=== PATIENT | female | born 1985 | race Caucasian/White ===

== ENCOUNTER 2020-05-08 15:24 | Emergency (ER) | payer BC ==
[2020-05-08] MEDS ORDERED: ROCEPHIN 2 Gm-D5w 50ML BAG** 2 G/50 ML IVPB IV ONE (16:05)
[2020-05-08] MEDS ORDERED: Sodium Chloride 0.9% 1000 ML 1,000 ML ONE (16:05)
[2020-05-08] MEDS ORDERED: MORPHINE SULFATE 4 MG INJ ONE (16:05)
[2020-05-08] MEDS ORDERED: Zofran 4 MG/2 ML VIAL ONE (16:05)
[2020-05-08] MEDS: ROCEPHIN 2 Gm-D5w 50ML BAG** 2 G/50 ML IVPB IV STA (16:14)
[2020-05-08] MEDS: Sodium Chloride 0.9% 1000 ML 1,000 ML IV STA (16:14)
[2020-05-08] MEDS: MORPHINE SULFATE 4 MG INJ IV ONE (16:15)
[2020-05-08] MEDS: Zofran 4 MG/2 ML VIAL IV ONE (16:16)
[2020-05-08] MEDS ORDERED: Phenergan 25 MG INJ ONE (16:19)
--- NOTE | 2020-05-08 16:26 | ERPHSYRPT ---
- History of Present Illness Time Seen by Provider: 05/08/20 15:38 Patient Subjective Stated Complaint: PT states "I went to the dr because I have had really bad back pain and Dr. Weiss is wanting to do a hysterectomy but when he checked my urine it was really bad he said." Triage Nursing Assessment: Pt presented alert and oriented X 3, skin pwd PT ambulates with an upright steady gait, able to speak in complete full sentences pt in no apparent respriatory distress. Physician History: 35 years old female with history of irregular cycles presented in the ER from [facility] for evaluation of low back pain and urinary symptoms. Patient reports going off and on for almost a month where she has a constant desire to urinate and every time she has a sense of incomplete void with pressure in the pelvis and moderate intensity dull aching to stabbing pain in the low back and left flank which is aggravated with urination. She has been taking [id number] medication with no significant relief. Denies any vaginal bleeding associated with it at this time. Patient was at [facility] office for possible hysterectomy but urinalysis showed UTI and is sent in here for further evaluation with ultrasound and lab work. Patient feels nauseated but no vomiting. No fever or chills reported. Timing/Duration: week(s), intermittent, worse Activites at Onset: none Quality: aching, throbbing Onset Location: unknown Pain Radiation: none Severity of Pain-Max: moderate Severity of Pain-Current: moderate Prior abdominal problems: none Sexual intercourse history: non-contributory Modifying Factors: Improves With: urinating Associated Symptoms: nausea, dysuria, urinary frequency, lower back pain, No abdominal pain, No fever, No chills, No vomiting, No loss of bladder control, No vaginal discharge Allergies/Adverse Reactions: levofloxacin [From Levaquin] Allergy (Intermediate, Verified 05/08/20 15:37) Rash Sulfa (Sulfonamide Antibiotics) Allergy (Intermediate, Verified 05/08/20 15:37) Rash ondansetron HCl [From Zofran (as hydrochloride)] Adverse Reaction (Severe, Verified 05/08/20 15:37) Difficulty Breathing Home Medications: No Reportable Medications [No Reported Medications] 05/08/20 [History] Hx Tetanus, Diphtheria Vaccination/Date Given: Yes Hx Influenza Vaccination/Date Given: No Hx Pneumococcal Vaccination/Date Given: No Travel Risk - International Travel Have you traveled outside of the country in past 3 weeks: No - Coronavirus Screening Are you exhibiting any of the following symptoms?: No Close contact with a COVID-19 positive Pt in past 14-21 Days: No - Review of Systems Constitutional: No Symptoms Eyes: No Symptoms Ears, Nose, & Throat: No Symptoms Respiratory: No Symptoms Cardiac: No Symptoms Abdominal/Gastrointestinal: No Symptoms Genitourinary Symptoms: Dysuria, Frequency, Flank Pain, No Hematuria, No He sitancy Musculoskeletal: Back Pain Skin: No Symptoms Neurological: No Symptoms Psychological: No Symptoms Endocrine: No Symptoms Hematologic/Lymphatic: No Symptoms Immunological/Allergic: No Symptoms - Past Medical History Pertinent Past Medical History: No Other Medical History: ovarian cyst - Past Surgical History Past Surgical History: Yes Female Surgical History: Section, Tubal Ligation, Other Other Surgical History: ablasion, - Social History Smoking Status: Current every day smoker How long have you smoked: years Exposure to second hand smoke: Yes Drug Use: none Patient Lives Alone: No - Female History Hx Last Menstrual Period: 04/24/2020 Hx Now: No - Nursing Vital Signs Nursing Vital Signs: Initial Vital Signs Temperature 98.5 F 05/08/20 15:30 Pulse Rate 130 H 05/08/20 15:30 Respiratory Rate 22 05/08/20 15:30 Blood Pressure 100/81 05/08/20 15:30 O2 Sat by Pulse Oximetry 96 05/08/20 15:30 Pain Scale Pain Intensity 0 - Physical Exam General Appearance: no apparent distress Eye Exam: PERRL/EOMI, eyes nml inspection Ears, Nose, Throat Exam: normal ENT inspection, TMs normal, pharynx normal Neck Exam: normal inspection, non-tender, supple, full range of motion Respiratory Exam: normal breath sounds, lungs clear, respiratory distress Cardiovascular Exam: regular rate/rhythm, normal heart sounds Gastrointestinal/Abdomen Exam: soft, normal bowel sounds, No tenderness Back Exam: normal inspection, normal range of motion, No CVA tenderness Extremity Exam: normal inspection, normal range of motion Neurologic Exam: alert, oriented x 3, cooperative Skin Exam: normal color, warm, dry SpO2 Interpretation: normal SpO2: 96 O2 Delivery: Room Air Ordered Tests: Active Orders 24 hr Category Date Time Status IV Insertion STAT Care 05/08/20 16:09 Active KIDNEY [US] Stat Exams 05/08/20 15:47 Completed PELVIS TRANS VAGINAL [US] Stat Exams 05/08/20 15:47 Completed CBC W DIFF Stat Lab 05/08/20 15:43 Completed CMP Stat Lab 05/08/20 15:50 Completed TSH [TSH, 3RD Generation] Stat Lab 05/08/20 15:50 Completed UA W/RFX UR CULTURE Stat Lab 05/08/20 16:02 Completed Medication Summary Discontinued Medications Generic Name Dose Route Start Last Admin Trade Name Tera PRN Reason Stop Dose Admin Ceftriaxone Sodium/Dextrose 2 g in 50 mls @ 100 mls/hr 05/08/20 15:47 05/08/20 16:45 Rocephin 2 Gm-D5w 50ml Bag IV 05/08/20 16:16 Infused STAT STA Infusion Sodium Chloride 1,000 mls @ 999 mls/hr 05/08/20 15:48 05/08/20 17:33 Sodium Chloride 0.9% 1000 Ml IV 05/08/20 16:48 Infused .Q1H1M STA Infusion Sodium Chloride Confirm 05/08/20 16:05 Sodium Chloride 0.9% 1000 Ml Administered 05/08/20 16:06 Dose 1,000 mls @ ud .ROUTE .STK-MED ONE Ceftriaxone Sodium/Dextrose Confirm 05/08/20 16:05 Rocephin 2 Gm-D5w 50ml Bag Administered 05/08/20 16:06 Dose 2 g in 50 mls @ ud IV .STK-MED ONE Ketorolac Tromethamine 30 mg 05/08/20 17:16 05/08/20 17:17 Toradol 30 Mg Injection IV 05/08/20 17:17 30 mg STAT ONE Administration Ketorolac Tromethamine Confirm 05/08/20 17:16 Toradol 30 Mg Injection Administered 05/08/20 17:17 Dose 30 mg .ROUTE .STK-MED ONE Morphine Sulfate 4 mg 05/08/20 15:48 05/08/20 16:15 Morphine Sulfate 4 Mg Inj IV 05/08/20 15:49 4 mg STAT ONE Administration Morphine Sulfate Confirm 05/08/20 16:05 Morphine Sulfate 4 Mg Inj Administered 05/08/20 16:06 Dose 4 mg .ROUTE .STK-MED ONE Ondansetron HCl 4 mg 05/08/20 15:48 05/08/20 16:16 Zofran 4 Mg/2 Ml Vial IV 05/08/20 15:49 Not Given STAT ONE Ondansetron HCl Confirm 05/08/20 16:05 Zofran 4 Mg/2 Ml Vial Administered 05/08/20 16:06 Dose 4 mg .ROUTE .STK-MED ONE Promethazine HCl 25 mg 05/08/20 16:17 05/08/20 16:28 Phenergan 25 Mg Inj IM 05/08/20 16:18 25 mg STAT ONE Administration Promethazine HCl Confirm 05/08/20 16:19 Phenergan 25 Mg Inj Administered 05/08/20 16:20 Dose 25 mg .ROUTE .STK-MED ONE Lab/Rad Data: Laboratory Result Diagrams 05/08/20 15:43 05/08/20 15:50 Laboratory Results 05/08/20 05/08/20 05/08/20 Range/Units Unknown 16:02 15:50 WBC (4.0-10.5) K/mm3 RBC (4.1-5.4) M/mm3 Hgb (12.0-16.0) gm/dl Hct (35-47) % MCV (78-100) fl MCH (26-32) pg MCHC (32-36) g/dl RDW (11.5-14.0) % Plt Count (150-450) K/mm3 MPV (7.5-11.0) fl Gran % (36.0-66.0) % Eos # (Auto) (0-0.5) Absolute Lymphs (auto) (1.0-4.6) Absolute Monos (auto) (0.0-1.3) Lymphocytes % (24.0-44.0) % Monocytes % (0.0-12.0) % Eosinophils % (0.00-5.0) % Basophils % (0.0-0.4) % Absolute Granulocytes (1.4-6.9) Basophils # (0-0.4) Sodium 136 L (137-145) mmol/L Potassium 4.0 (3.5-5.1) mmol/L Chloride 105 (98-107) mmol/L Carbon Dioxide 23 (22-30) mmol/L Anion Gap 12.1 (5-15) MEQ/L BUN 15 (7-17) mg/dL Creatinine 0.86 (0.52-1.04) mg/dL Estimated GFR > 60.0 ML/MIN Glucose 105 (74-106) mg/dL Calcium 9.4 (8.4-10.2) mg/dL Total Bilirubin 0.50 (0.2-1.3) mg/dL AST 27 (14-36) U/L ALT 40 H (0-35) U/L Alkaline Phosphatase 63 (38-126) U/L Serum Total Protein 7.4 (6.3-8.2) g/dL Albumin 4.4 (3.5-5.0) g/dL 25-OH Vitamin D Total 70.9 (30-100) ng/mL TSH 3rd Generation 1.660 (0.47-4.68) mIU/L Urine Color YELLOW (YELLOW) Urine Appearance TURBID (CLEAR) Urine pH 5.0 (5-6) Ur Specific [place] 1.031 (1.005-1.025) Urine Protein 100 (Negative) Urine Ketones NEGATIVE (NEGATIVE) Urine Blood MODERATE (0-5) Caden/ul Urine Nitrite NEGATIVE (NEGATIVE) Urine Bilirubin NEGATIVE (NEGATIVE) Urine Urobilinogen 2 (0-1) mg/dL Ur Leukocyte Esterase SMALL (NEGATIVE) Urine WBC (Auto) NONE (0-5) /HPF Urine RBC (Auto) NONE (0-2) /HPF U Epithel Cells (Auto) RARE (FEW) /HPF Urine Bacteria (Auto) NONE SEEN (NEGATIVE) /HPF Amorphous Crystals MODERATE (NEGATIVE) /HPF Urine Mucus (Auto) SLIGHT (NEGATIVE) /HPF Urine Culture Reflexed NO (NO) Urine Glucose NEGATIVE (NEGATIVE) mg/dL 05/08/20 Range/Units 15:43 WBC 6.1 (4.0-10.5) K/mm3 RBC 4.31 (4.1-5.4) M/mm3 Hgb 13.8 (12.0-16.0) gm/dl Hct 40.6 (35-47) % MCV 94.2 (78-100) fl MCH 32.0 (26-32) pg MCHC 34.0 (32-36) g/dl RDW 12.7 (11.5-14.0) % Plt Count 209 (150-450) K/mm3 MPV 11.1 H (7.5-11.0) fl Gran % 51.7 (36.0-66.0) % Eos # (Auto) 0.33 (0-0.5) Absolute Lymphs (auto) 2.08 (1.0-4.6) Absolute Monos (auto) 0.47 (0.0-1.3) Lymphocytes % 34.2 (24.0-44.0) % Monocytes % 7.7 (0.0-12.0) % Eosinophils % 5.4 H (0.00-5.0) % Basophils % 1.0 (0.0-0.4) % Absolute Granulocytes 3.15 (1.4-6.9) Basophils # 0.06 (0-0.4) Sodium (137-145) mmol/L Potassium (3.5-5.1) mmol/L Chloride (98-107) mmol/L Carbon Dioxide (22-30) mmol/L Anion Gap (5-15) MEQ/L BUN (7-17) mg/dL Creatinine (0.52-1.04) mg/dL Estimated GFR ML/MIN Glucose (74-106) mg/dL Calcium (8.4-10.2) mg/dL Total Bilirubin (0.2-1.3) mg/dL AST (14-36) U/L ALT (0-35) U/L Alkaline Phosphatase (38-126) U/L Serum Total Protein (6.3-8.2) g/dL Albumin (3.5-5.0) g/dL 25-OH Vitamin D Total (30-100) ng/mL TSH 3rd Generation (0.47-4.68) mIU/L Urine Color (YELLOW) Urine Appearance (CLEAR) Urine pH (5-6) Ur Specific [place] (1.005-1.025) Urine Protein (Negative) Urine Ketones (NEGATIVE) Urine Blood (0-5) Caden/ul Urine Nitrite (NEGATIVE) Urine Bilirubin (NEGATIVE) Urine Urobilinogen (0-1) mg/dL Ur Leukocyte Esterase (NEGATIVE) Urine WBC (Auto) (0-5) /HPF Urine RBC (Auto) (0-2) /HPF U Epithel Cells (Auto) (FEW) /HPF Urine Bacteria (Auto) (NEGATIVE) /HPF Amorphous Crystals (NEGATIVE) /HPF Urine Mucus (Auto) (NEGATIVE) /HPF Urine Culture Reflexed (NO) Urine Glucose (NEGATIVE) mg/dL - Progress Progress: improved, re-examined Air Movement: good Progress Note: 05/08/20 19:44 35 years old is evaluated for UTI symptoms and low back pain with some flank pain. She is given IV fluid and pain medication along with 2 g of Rocephin as per DIRECTOR OF PHILANTHROPY recommendations. I have obtained ultrasound pelvis and renal per DIRECTOR OF PHILANTHROPY recommendation which did not show any acute findings. She has a normal white count. Grossly unremarkable chemistries. Patient symptoms signs are suggestive of UTI, patient has been given prescription of Keflex by Dr. Weiss. I have discussed results, patient condition with Dr. Weiss and recommended outpatient follow-up as scheduled. Patient has no peritoneal signs on repeated evaluation. Not in any distress or toxic appearance. Stable for discharge. Blood Culture(s) Obtained: No Antibiotics given: Yes Counseled pt/family regarding: lab results, diagnosis, need for follow-up, rad results - Departure Departure Disposition: Home Clinical Impression: Acute cystitis Qualifiers: Hematuria presence: with hematuria Qualified Code(s): N30.01 - Acute cystitis with hematuria Condition: Stable Critical Care Time: No Referrals: JEANIE JACKMAN [Primary Care Provider] - Follow Up with PCP/3 days SHER WEISS DO [ACTIVE STAFF] - (As scheduled) Instructions: Urinary Tract Infection, Adult (DC) Additional Instructions: Drink plenty of fluids. Take Tylenol/ibuprofen as needed. Continue with Keflex recommended by your DIRECTOR OF PHILANTHROPY. Follow-up with Dr. Weiss as recommended. Return to ER for any worsening.
[2020-05-08] MEDS: Phenergan 25 MG INJ IM ONE (16:28)
[2020-05-08 16:39] LABS: Absolute Neutrophil Ct (ANC) 3.15 (1.4-6.9); Basophil (Absolute #) 0.06 (0-0.4); Eosinophil % 5.4 % (0.00-5.0); Eosinophil (Absolute #) 0.33 (0-0.5); Hematocrit 40.6 % (35-47); Hemoglobin 13.8 gm/dl (12.0-16.0); Lymphocyte (Absolute #) 2.08 (1.0-4.6); Lymphocytes % 34.2 % (24.0-44.0); Mean Cell Volume 94.2 fl (78-100); Mean Platelet Volume 11.1 fl (7.5-11.0); Monocyte (Absolute #) 0.47 (0.0-1.3); Monocytes % 7.7 % (0.0-12.0); Neutrophil % 51.7 % (36.0-66.0); Platelet Count 209 K/mm3 (150-450); Red Blood Count 4.31 M/mm3 (4.1-5.4); Red Cell Distribution Width 12.7 % (11.5-14.0); White Blood Count 6.1 K/mm3 (4.0-10.5)
[2020-05-08 16:43] LABS: Amourphous Crystal MODERATE /HPF (NEGATIVE); Appearance TURBID (CLEAR); Bilirubin NEGATIVE (NEGATIVE); Blood MODERATE Ery/ul (0-5); Epithelial Cells RARE /HPF (FEW); Glucose NEGATIVE (NEGATIVE); Ketones NEGATIVE (NEGATIVE); Leukocyte Esterase SMALL (NEGATIVE); Mucus SLIGHT /HPF (NEGATIVE); Nitrite NEGATIVE (NEGATIVE); Protein,Urine Dip 100 (Negative); Specific Gravity 1.031 (1.005-1.025); Urobilinogen 2 mg/dL (0-1)
[2020-05-08 16:45] LABS: Bacteria NONE SEEN /HPF (NEGATIVE)
[2020-05-08] MEDS ORDERED: TORAdol 30 mg Injection ONE (17:16)
[2020-05-08] MEDS: TORAdol 30 mg Injection IV ONE (17:17)
[2020-05-08 17:34] LABS: ALBUMIN 4.4 g/dL (3.5-5.0); ALKALINE PHOSPHATASE 63 U/L (38-126); ANION GAP 12.1 MEQ/L (5-15); BLOOD UREA NITROGEN 15 mg/dL (7-17); CHLORIDE 105 mmol/L (98-107); Calcium 9.4 mg/dL (8.4-10.2); Carbon Dioxide 23 mmol/L (22-30); Creatinine 1 0.86 mg/dL (0.52-1.04); Glucose 105 mg/dL (74-106); SGOT/AST 27 U/L (14-36); SGPT/ALT 40 U/L (0-35); SODIUM 136 mmol/L (137-145); Total Protein 7.4 g/dL (6.3-8.2)
--- NOTE | 2020-05-08 19:22 | XRAY ---
Exam: Transvaginal pelvic ultrasound from 05/08/2020. Comparison: CT of the abdomen and pelvis with IV contrast from 02/24/2016. Indication: 35-year-old female with low back pain. Findings: Transvaginal images of the pelvis reveal a retroflexed uterus measuring 6.5 cm in length, 4.0 cm in AP depth, and 4.35 cm in width. The uterine myometrial acoustical architecture appears homogeneous without mass. AP dimension of the endometrium on the midline sagittal image measures 2.7 mm. There is a 4.5 mm x 3.5 mm nabothian cyst seen within the cervical region. I see no free intraperitoneal fluid within the cul-de-sac. However, I cannot exclude a small amount of free fluid abutting the uterine fundus. This is nonspecific. The right ovary measures reveals several follicles within it, the largest follicle measuring 1.5 cm in greatest diameter. The right ovary measures 3.7 cm x 1.8 cm x 2.0 cm. Normal color blood flow and Doppler signal are seen within the right ovary. The left ovary measures 2.7 cm x 1.1 cm x 1.0 cm. Normal color blood flow and Doppler signal are seen within the left ovary. Impression: 1. Normal-sized retroflexed uterus remarkable only for a nabothian cyst. 2. There is a suggestion of a small amount of free intraperitoneal fluid adjacent to the uterine fundus. This is nonspecific. 3. Several follicles are seen within the right ovary, the largest measuring 1.5 cm in greatest diameter. Otherwise, both ovaries appear unremarkable.
--- NOTE | 2020-05-08 19:39 | XRAY ---
Exam: Renal ultrasound from 05/08/2020. Comparison: CT of the abdomen and pelvis with IV contrast from 02/24/2016. Indication: 35-year-old female with abdominal pain/flank pain. Findings: The right kidney measures 9.7 cm in length, 3.8 cm in AP depth, and 4.1 cm in width. Normal color blood flow is seen within the right kidney. There is no solid mass, significant cyst, or dominant stone seen. There is no evidence of hydronephrosis. Renal cortex thickness and echogenicity appear unremarkable. The left kidney measures 10.4 cm in length, 4.3 cm in AP depth, and 3.5 cm in width. Color blood flow images within the left kidney appear unremarkable. I see no solid mass, significant cyst, hydronephrosis, or dominant renal stone. Renal cortex thickness and echogenicity appear unremarkable. The urinary bladder is mildly distended and measures 5.60 cm in width, 3.7 cm in craniocaudal length, and 3.7 cm in AP dimension, yielding a urinary bladder volume of 35.41 ML's. Neither distal ureteral jet was seen with color flow imaging. Impression: 1. No significant abnormality detected. Specifically, I see no evidence of dominant renal stone or hydronephrosis.
[2020-05-08 19:58] VITALS: BP 110/66; PULSE 87; O2SAT 97
[2020-05-11 02:43] LABS: FOLLICLE STIMULATING HORMONE 4.5 mIU/mL; Lutenizing Hormone 7.8 mIU/mL
== END 2020-05-08 20:14 | disposition home or self-care (01) ==
LOC: ED 15:24
DX: N30.01 Acute cystitis with hematuria (principal)
CPT/HCPCS: 36000; 36415; 76770; 76830; 80053; 81001; 82306; 83001; 83002; 83525; 84403; 84443; 85025; 87480; 87510; 87660; 96360; 96365; 96372; 96374; 96375; 99284; J0696; J1885; J2270; J2405; J2550

== ENCOUNTER 2022-03-22 19:39 | Emergency (ER) | payer BC ==
[2022-03-22] MEDS ORDERED: DUONEB 0.5-3 MG/3 ml Neb IH ONE ×2 (20:36→20:43)
--- NOTE | 2022-03-22 20:43 | ERPHSYRPT ---
- History of Present Illness Source: patient Exam Limitations: no limitations Patient Subjective Stated Complaint: C/O cough for past week. States she thought it was getting better but now it's worse. Doesn't know if she has had a fever or not. Reports coughing up yellow sputum. Denies SOB or pain. States, "I can feel this moving into my chest." Triage Nursing Assessment: Patient ambulated back to ED without difficulties. No SOB. She is alert and oriented and answering questions appropriately. Frequent cough noted during assessment; non-productive at this time. Some wheezing noted in bilateral upper lobes. Physician History: 36 yo wf w cough x 1 week. Pt denies coryza/ST/fever/N/V/D. She smokes <1ppd. Timing/Duration: other (1wk) Cough Quality/Degree: dry cough Possible Cause: no prior episodes Associated Symptoms: cough, wheezing, No fever, No chills, No chest pain/soreness, No dizziness, No earache, No facial pain, No headache, No lightheadedness, No muscle aches, No nasal congestion, No nasal drainage, No shortness of breath, No sinus infection, No sore throat Allergies/Adverse Reactions: levofloxacin [From Levaquin] Allergy (Intermediate, Verified 03/22/22 19:58) Rash Sulfa (Sulfonamide Antibiotics) Allergy (Intermediate, Verified 03/22/22 19:58) Rash ondansetron HCl [From Zofran (as hydrochloride)] Adverse Reaction (Severe, Verified 03/22/22 19:58) Difficulty Breathing Hx Tetanus, Diphtheria Vaccination/Date Given: Yes Hx Influenza Vaccination/Date Given: No Hx Pneumococcal Vaccination/Date Given: No Immunizations Up to Date: Yes Travel Risk - International Travel Have you traveled outside of the country in past 3 weeks: No - Coronavirus Screening Are you exhibiting any of the following symptoms?: Yes Symptoms: Cough: New Onset, Headaches/Body Aches/Fatigue Close contact with a COVID-19 positive Pt in past 14-21 Days: No - Vaccine Status Have you recieved a Covid-19 vaccination: No - Review of Systems Constitutional: No Symptoms Eyes: No Symptoms Ears, Nose, & Throat: No Symptoms Respiratory: No Symptoms, Cough Cardiac: No Symptoms Abdominal/Gastrointestinal: No Symptoms Genitourinary Symptoms: No Symptoms Musculoskeletal: No Symptoms Skin: No Symptoms Neurological: No Symptoms Psychological: No Symptoms Endocrine: No Symptoms Hematologic/Lymphatic: No Symptoms Immunological/Allergic: No Symptoms - Past Medical History Pertinent Past Medical History: Yes Neurological History: No Pertinent History ENT History: No Pertinent History Cardiac History: Other Respiratory History: Asthma, Other Endocrine Medical History: No Pertinent History Musculoskeletal History: No Pertinent History GI Medical History: No Pertinent History History: No Pertinent History Psycho-Social History: No Pertinent History Female Reproductive Disorders: No Pertinent History Other Medical History: ovarian cyst, meningitis, pericarditis, tachycardia, low B/P, lacerated kidney and liver, rupture bladder, punctured lung (right had a chest tube) - Past Surgical History Past Surgical History: Yes Neuro Surgical History: No Pertinent History Cardiac: No Pertinent History Respiratory: No Pertinent History Gastrointestinal: No Pertinent History Genitourinary: No Pertinent History Musculoskeletal: No Pertinent History Female Surgical History: Section, Tubal Ligation, Other Other Surgical History: ablasion, - Social History Smoking Status: Current every day smoker How long have you smoked: 2 years Exposure to second hand smoke: No Drug Use: none Patient Lives Alone: No Significant Family History: no pertinent family hx - Female History Hx Last Menstrual Period: Last week Hx Now: No - Nursing Vital Signs Nursing Vital Signs: Initial Vital Signs Temperature 98 F 03/22/22 19:59 Pulse Rate 103 H 03/22/22 19:59 Respiratory Rate 20 03/22/22 19:59 Blood Pressure 140/79 03/22/22 19:59 O2 Sat by Pulse Oximetry 98 03/22/22 19:59 Pain Scale Pain Intensity 0 Mildly tachy/Mildly hypertensive - Physical Exam General Appearance: no apparent distress Eye Exam: PERRL/EOMI, eyes nml inspection Ears, Nose, Throat Exam: normal ENT inspection, TMs normal, pharynx normal, moist mucous membranes Neck Exam: normal inspection, non-tender, supple, full range of motion, No meningismus, No mass, No Brudzinski, No Kernig's Respiratory Exam: airway intact, wheezing (Scattered wheezes B) Cardiovascular Exam: tachycardia, capillary refill <2 sec, No murmur Gastrointestinal/Abdomen Exam: soft, normal bowel sounds, No tenderness Back Exam: normal inspection, normal range of motion, CVA tenderness Extremity Exam: normal inspection, normal range of motion Neurologic Exam: alert, oriented x 3, cooperative, outreach consultant II-XII nml as tested, normal mood/affect, nml station & gait, sensation nml, No motor deficits, No sensory deficit Skin Exam: normal color, warm, dry Lymphatic Exam: No adenopathy SpO2 Interpretation: airway management int. SpO2: 95 O2 Delivery: Room Air - Course Nursing assessment & vital signs reviewed: Yes - Radiology Exams Chest X-ray Interpretation: Interpreted by me (CXR/NAD) Ordered Tests: Active Orders 24 hr Category Date Time Status CHEST 1 VIEW (PORTABLE) Stat Exams 03/22/22 20:11 Taken CULTURE,URINE Stat Lab 03/22/22 20:39 Received UA W/RFX CULTURE Stat Lab 03/22/22 20:39 Completed Respiratory Therapy Assessment DAILY RT 03/22/22 21:16 Completed Medication Summary Discontinued Medications Generic Name Dose Route Start Last Admin Trade Name Frankyq PRN Reason Stop Dose Admin Hydrocodone Bitart/Acetaminophen 1 tablet 03/22/22 21:16 03/22/22 21:20 Hydrocodone/Acetamin 10-325 Mg Tablet PO 03/22/22 21:17 1 tablet ONCE ONE Administration Albuterol/Ipratropium 3 ml 03/22/22 20:36 03/22/22 20:45 Ipratropium/Albuterol Sulfate 3 Ml Ampul.Neb IH 03/22/22 20:37 3 ml STAT ONE Administration Albuterol/Ipratropium Confirm 03/22/22 20:43 Ipratropium/Albuterol Sulfate 3 Ml Ampul.Neb Administered 03/22/22 20:44 Dose 3 ml IH .STK-MED ONE Prednisone 60 mg 03/22/22 21:03 03/22/22 21:14 Prednisone 20 Mg Tablet PO 03/22/22 21:04 60 mg STAT ONE Administration Prednisone Confirm 03/22/22 21:12 Prednisone 20 Mg Tablet Administered 03/22/22 21:13 Dose 60 mg .ROUTE .STK-MED ONE Lab/Rad Data: Laboratory Results 03/22/22 03/22/22 Range/Units 20:39 19:00 Urinalys Dipstick Clnc MAIN LAB Urine Color YELLOW (YELLOW) Urine Appearance CLEAR (CLEAR) Urine pH 5.5 (5-6) Ur Specific [place] >=1.030 (1.005-1.025) POC Urine Protein Conf 100 (Negative) Urine Ketones NEGATIVE (NEGATIVE) Urine Nitrite NEGATIVE (NEGATIVE) Urine Bilirubin NEGATIVE (NEGATIVE) Urine Urobilinogen 0.2 (0-1) mg/dL Urine Leukocytes NEGATIVE (NEGATIVE) Urine WBC (Auto) 0-2 (0-5) /HPF Urine RBC (Auto) 3-5 (0-2) /HPF U Epithel Cells (Auto) RARE (FEW) /HPF Urine Bacteria (Auto) MANY (NEGATIVE) /HPF Urine RBC MODERATE (0-5) Caden/ul Urine Mucus (Auto) SLIGHT (NEGATIVE) /HPF Ur Culture Indicated? YES Urine Glucose NEGATIVE (NEGATIVE) mg/dL Influenza Type A Ag NEGATIVE (NEGATIVE) Influenza Type B Ag NEGATIVE (NEGATIVE) RSV (PCR) NEGATIVE (Negative) SARS-CoV-2 (PCR) NEGATIVE (NEGATIVE) - Progress Progress Note: 03/22/22 21:04 Albuterol neb x1 60mg po Prednisone Counseled pt/family regarding: diagnosis, need for follow-up, rad results - Departure Departure Disposition: Home Clinical Impression: Asthmatic bronchitis Condition: Stable Critical Care Time: No Referrals: DOCTOR,NO FAMILY [Primary Care Provider] - Follow up/PCP as directed Instructions: Acute Bronchitis, Adult (DC), Cough, Adult (DC) Additional Instructions: Quit smoking Doxycycline twice a day for 1 week Prednisone twice a day for 5 days Proventil inhaler 2puffs every 4 hours as needed Flovent 2 puffs twice a day If you get short of breath, use the Proventil inhaler and not Flovent Follow up with your family MD in 1-2 days Return to ER for increasing shortness of breath or temperature greater than 100.5 Prescriptions: Prednisone 10 mg [Deltasone 10 mg] 10 mg PO BID 5 Days #10 tablet Doxycycline Monohydrate 100 mg PO BID 7 Days #14 Fluticasone Propionate [Flovent Hfa] 2 puffs IH BID #1 inh Albuterol Sulfate [Proventil Hfa] 2 puffs IH Q4-6HPRN PRN #1 inhaler PRN Reason: Shortness Of Breath/Wheezing
[2022-03-22 20:57] LABS: INFLUENZA A NEGATIVE (NEGATIVE); INFLUENZA B NEGATIVE (NEGATIVE); RESPIRATORY SYNCTIAL VIRUS NEGATIVE (Negative); SARS-CoV-2 Xpert Express NEGATIVE (NEGATIVE)
[2022-03-22] MEDS ORDERED: DELTASONE 20 MG PO ONE (21:03)
[2022-03-22 21:06] VITALS: BP 108/65; PULSE 103
[2022-03-22 21:08] LABS: Appearance CLEAR (CLEAR); Bilirubin NEGATIVE (NEGATIVE); Glucose NEGATIVE (NEGATIVE); Ketones NEGATIVE (NEGATIVE); Ph 5.5 (5-6); RBC MODERATE Ery/ul (0-5); Specific Gravity >=1.030 (1.005-1.025)
[2022-03-22 21:09] LABS: Dipstick done @ ? MAIN LAB; Nitrite NEGATIVE (NEGATIVE); Protein,Urine Dip 100 (Negative); Urobilinogen 0.2 mg/dL (0-1)
[2022-03-22 21:10] VITALS: O2SAT 95
[2022-03-22] MEDS ORDERED: DELTASONE 20 MG ONE (21:12)
[2022-03-22 21:14] LABS: Epithelial Cells RARE /HPF (FEW); Mucus SLIGHT /HPF (NEGATIVE); WBC 0-2 /HPF (0-5)
[2022-03-22] MEDS ORDERED: HYDROCODONE-ACETAMIN 10-325 MG PO ONE (21:16)
[2022-03-22 21:17] LABS: Bacteria MANY /HPF (NEGATIVE); Urine Cultured Indicated? YES
--- NOTE | 2022-03-23 08:53 | XRAY ---
Indication: Cough. Comparison: None Portable chest demonstrates normal heart, lungs, and bony thorax.
== END 2022-03-22 21:35 | disposition home or self-care (01) ==
LOC: ED 19:39
DX: J45.909 Unspecified asthma, uncomplicated (principal); R05.1 Acute cough; Z72.0 Tobacco use; Z79.52 Long term (current) use of systemic steroids; Z28.310 Unvaccinated for COVID-19
CPT/HCPCS: 0241U; 71045; 81015; 87086; 94640; 99284; A9270-GY

== ENCOUNTER 2022-06-13 01:16 | Emergency (ER) | payer BC ==
--- NOTE | 2022-06-13 01:25 | ERPHSYRPT ---
- History of Present Illness Time Seen by Provider: 06/13/22 01:24 Source: patient Exam Limitations: no limitations Physician History: This is a 37-year-old white female who had relatively abrupt onset of right upper molar pain that radiated into her right ear and right jaw. She did not suffer any kind of trauma. She did take a 5/325 [place] approximately an hour prior to arrival. It was approximately 2 years old. She also took an Augmentin antibiotic approximate hour prior to arrival and it also was approximately 2 years old. Severity: moderate ENT Location: dental Prearrival Treatment: prescription meds Associated Symptoms: ear pain (R), tooth pain (Right upper molar pain), other (Right jaw pain) Allergies/Adverse Reactions: levofloxacin [From Levaquin] Allergy (Intermediate, Verified 06/13/22 01:28) Rash Sulfa (Sulfonamide Antibiotics) Allergy (Intermediate, Verified 06/13/22 01:28) Rash ondansetron HCl [From Zofran (as hydrochloride)] Adverse Reaction (Severe, Verified 06/13/22 01:28) Difficulty Breathing Hx Tetanus, Diphtheria Vaccination/Date Given: Yes Hx Influenza Vaccination/Date Given: No Hx Pneumococcal Vaccination/Date Given: No Travel Risk - International Travel Have you traveled outside of the country in past 3 weeks: No - Coronavirus Screening Are you exhibiting any of the following symptoms?: No Close contact with a COVID-19 positive Pt in past 14-21 Days: No - Vaccine Status Have you recieved a Covid-19 vaccination: No - Review of Systems Constitutional: No Symptoms Eyes: No Symptoms Ears, Nose, & Throat: Ear Pain (Right), Other (Right upper molar pain, right g ingival pain upper region, right earache) Respiratory: No Symptoms Cardiac: No Symptoms Abdominal/Gastrointestinal: No Symptoms Genitourinary Symptoms: No Symptoms Musculoskeletal: No Symptoms Skin: No Symptoms Neurological: No Symptoms Psychological: No Symptoms Endocrine: No Symptoms Hematologic/Lymphatic: No Symptoms Immunological/Allergic: No Symptoms All Other Systems: Reviewed and Negative - Past Medical History Pertinent Past Medical History: Yes Neurological History: No Pertinent History ENT History: No Pertinent History Cardiac History: Other Respiratory History: Asthma, Other Endocrine Medical History: No Pertinent History Musculoskeletal History: No Pertinent History GI Medical History: No Pertinent History History: No Pertinent History Psycho-Social History: No Pertinent History Female Reproductive Disorders: No Pertinent History Other Medical History: ovarian cyst, meningitis, pericarditis, tachycardia, low B/P, lacerated kidney and liver, rupture bladder, punctured lung (right had a chest tube) - Past Surgical History Past Surgical History: Yes Neuro Surgical History: No Pertinent History Cardiac: No Pertinent History Respiratory: No Pertinent History Gastrointestinal: No Pertinent History Genitourinary: No Pertinent History Musculoskeletal: No Pertinent History Female Surgical History: Section, Tubal Ligation, Other Other Surgical History: ablasion, - Social History Smoking Status: Current every day smoker How long have you smoked: 2 years Exposure to second hand smoke: No Drug Use: none Patient Lives Alone: No Significant Family History: no pertinent family hx - Nursing Vital Signs Nursing Vital Signs: Initial Vital Signs Temperature 97.7 F 06/13/22 01:29 Pulse Rate 86 06/13/22 01:29 Respiratory Rate 24 06/13/22 01:29 Blood Pressure 145/83 06/13/22 01:29 O2 Sat by Pulse Oximetry 97 06/13/22 01:29 Pain Scale Pain Intensity 8 - Physical Exam General Appearance: no apparent distress, alert, anxiety Eye Exam: bilateral eye: normal inspection, PERRL, EOMI Ear Exam: right ear: tenderness, bilateral ear: auricle normal, canal normal, TM normal Nasal Exam: normal inspection Throat Exam: normal, pharynx normal, dental tenderness (Right upper molars. Associated gingival inflammation same region), moist mucus membranes Neck Exam: normal inspection, non-tender, supple, full range of motion Cardiovascular/Respiratory Exam: chest non-tender, no respiratory distress Abdominal Exam: non-tender, spleenomegaly Neurologic Exam: alert, oriented x 3, cooperative, normal mood/affect, nml cerebellar function, nml station & gait, sensation nml Skin Exam: normal color, warm, dry SpO2 Interpretation: normal O2 Delivery: Room Air - Course Nursing assessment & vital signs reviewed: Yes - Progress Progress: improved Counseled pt/family regarding: diagnosis, need for follow-up - Departure Departure Disposition: Home Clinical Impression: Acute gingival inflammation, Pain, dental, Earache, right Condition: Stable Critical Care Time: No Referrals: DOCTOR,NO FAMILY [Primary Care Provider] - Follow up/PCP as directed Additional Instructions: Do not take the old [place] and old Augmentin antibiotics. Add ibuprofen and Tylenol to your pain control regimen. Take your other prescribed medicine. Follow-up with a dentist for definitive care. Prescriptions: Amoxicillin 500 mg Cap [Amoxil 500 mg] 500 mg PO TID #30 cap Prednisone 10 mg [Deltasone 10 mg] 10 mg PO TID #12 tablet
[2022-06-13] MEDS ORDERED: solu-MEDROL 125 MG, Sterile H2O 10 ml 2 ML IM ONE ×2 (01:46)
[2022-06-13] MEDS ORDERED: Hydromorphone 1 mg/ml Injection IM ONE (01:46)
[2022-06-13] MEDS ORDERED: Rocephin 1000 MG INJ IM ONE (01:46)
[2022-06-13] MEDS ORDERED: ZOFRAN ODT 4 MG PO ONE (01:47)
[2022-06-13] MEDS ORDERED: Compazine 5 MG PO ONE (02:04)
[2022-06-13] MEDS ORDERED: Sterile H2O 10 ml IJ ONE (02:05)
[2022-06-13] MEDS ORDERED: XYLOCAINE 1% HCL 20 ML MDV ONE (02:05)
[2022-06-13] MEDS ORDERED: Rocephin 1000 MG INJ ONE (02:05)
[2022-06-13] MEDS ORDERED: solu-MEDROL ONE (02:05)
[2022-06-13] MEDS ORDERED: Hydromorphone 1 mg/ml Injection ONE (02:12)
[2022-06-13 02:46] VITALS: BP 120/79; PULSE 88; O2SAT 97
== END 2022-06-13 02:43 | disposition home or self-care (01) ==
LOC: ED 01:16
DX: K05.10 Chronic gingivitis, plaque induced (principal); K08.89 Other specified disorders of teeth and supporting structures; H92.01 Otalgia, right ear; Z72.0 Tobacco use; Z28.310 Unvaccinated for COVID-19; Z79.52 Long term (current) use of systemic steroids
CPT/HCPCS: 96372; 99283; J0696; J1170; J2930; A9270-GY